=== PATIENT | female | born 1995 | race African-American/Black ===

== ENCOUNTER → 2018-06-07 | Outpatient (REF) | payer OTHER | LOC: M LAB REF 13:10 | PROVIDERS: ATTEND Advanced Practice Midwife | DX: Z34.83 Encounter for supervision of other normal pregnancy, third trimester (principal); Z3A.00 Weeks of gestation of pregnancy not specified ==

== ENCOUNTER 2018-06-24 12:02 | Outpatient (CLI) | payer OTHER ==
[~2018-06-24] VITALS: Ht 152.4 cm; Wt 63.5 kg
[2018-06-24 12:27] VITALS: BP 108/62
[2018-06-24] MEDS ORDERED: PRENTAB9 PO (12:41)
== END 2018-06-24 14:00 | disposition home or self-care (01) ==
LOC: M LDO 12:02
PROVIDERS: ATTEND Specialist
DX: O26.853 Spotting complicating pregnancy, third trimester (principal); O26.893 Other specified pregnancy related conditions, third trimester; M54.5 Low back pain; O47.1 False labor at or after 37 completed weeks of gestation; Z3A.38 38 weeks gestation of pregnancy
CPT/HCPCS: 59025; G0378; G0463

== ENCOUNTER 2018-07-01 10:10 | Inpatient (IN) | payer OTHER ==
[~2018-07-01] VITALS: Ht 152.4 cm; Wt 64.5 kg
[2018-07-01] VITALS (39 sets, daily range): BP systolic 86–129; BP diastolic 52–75
[~2018-07-01 10:10] MED LIST: PRENTAB9 PO
[2018-07-01 11:52] LABS: HEMATOCRIT 35.9 % (36.0-47.0); HEMOGLOBIN 11.7 g/dl (12.0-15.5); MEAN CORPUSCULAR HEMOGLOBIN 27.3 pg (27.0-33.0); MEAN CORPUSCULAR HGB CONC 32.6 g/dl (32.0-36.5); MEAN CORPUSCULAR VOLUME 83.7 fl (80.0-96.0); PLATELET COUNT, AUTOMATED 189 10^3/uL (150-450); RED BLOOD COUNT 4.29 10^6/uL (4.00-5.40); WHITE BLOOD COUNT 10.2 10^3/uL (4.0-10.0)
[2018-07-01] MEDS ORDERED: FENTANYL 2MCG/ML ROPIVACAINE 0.2% IN 0.9% NACL 100ML IVBAG As Ordered ONE (12:31)
[2018-07-01] MEDS ORDERED: LR 1,000 ML IV ONE (12:45)
[2018-07-01] MEDS: LR 1,000 ML IV SCH ×2 (13:22→18:00)
[2018-07-01] MEDS ORDERED: ePHEDrine SULFATE 25 MG/5 ML(5MG/ML) SYRINGE As Ordered ONE (13:49)
[2018-07-01] MEDS ORDERED: REFRIGERATOR IV KEYS XX PRN (14:00)
[2018-07-01] MEDS ORDERED: FENTANYL/ROPIVACAINE/NACL BAG 100 ML EPIDURAL SCH (14:00)
[2018-07-01] MEDS ORDERED: ePHEDrine SULFATE 25 MG/5 ML(5MG/ML) SYRINGE IV PRN (14:00)
[2018-07-01] MEDS ORDERED: NALOXONE INJ 0.4 MG/1 ML VIAL (J2310) IV PRN (14:00)
[2018-07-01] MEDS ORDERED: diphenhydrAMINE INJ 50MG/ML VIAL (J1200) IV PRN (14:00)
[2018-07-01] MEDS ORDERED: ONDANSETRON 4MG/2ML VIAL (J2405) IV PRN (14:00)
[2018-07-01] MEDS ORDERED: EPIDURAL/PCA KEYS XX PRN (14:00)
[2018-07-01] MEDS ORDERED: LACTATED RINGER'S 1000 ML IV PRN (14:00)
[2018-07-01] MEDS ORDERED: EPIDURAL COMMENT XX SCH (14:00)
[2018-07-01] MEDS ORDERED: OXYTOCIN 30 UNITS IN 0.9% NaCl 500ML IV BAG (J2590) As Ordered ONE (18:30)
--- NOTE | 2018-07-01 19:08 | HPE ---
DATE OF ADMISSION: 07/01/2018 REASON FOR ADMISSION: Labor. HISTORY OF PRESENT ILLNESS: Mrs. Edwards is a 23-year-old, 3, para 2 who presents at 39 weeks 4 days estimated gestational age by her last menstrual period confirmed by first trimester ultrasound here with complaints of contractions. She reports contractions throughout the day that have increased in intensity and frequency. She reports active movement. She denies any vaginal bleeding or leakage of fluid. Her course was remarkable for transfer of care with records. She initiated her care in the first trimester that has been appropriate throughout. She had a positive quad screen and genetic testing positive for trisomy 21. She declined amniocentesis, otherwise unremarkable course. PAST MEDICAL HISTORY: None. PAST SURGICAL HISTORY: She has had orthopedic surgery. PAST OBSTETRICAL HISTORY: She is 3, para 2. She has had two term vaginal births. She is proven 9 pounds 1 ounce. MEDICATIONS: Includes: - vitamins ALLERGIES: She has no known drug allergies. SOCIAL HISTORY: Denies any alcohol, tobacco or drug use during . PHYSICAL EXAMINATION: Her vital signs are stable. She is afebrile. General appearance is well appearing, no acute distress. She has a category one heart rate tracing with contractions on tacometer. Her lungs are clear to auscultation bilaterally. Cardiovascular: Heart regular rate and rhythm. Her abdomen is gravid, nontender. Estimated weight (EFW) 3500 grams. Cervical exam: She was 4 cm dilated, 75% effaced, -2 station. LABORATORY DATA: Her blood type is AB positive, antibody screen is negative. Rubella is immune. RPR is nonreactive. Hepatitis surface antigen negative, HIV is negative. Chlamydia, gonorrhea screens are negative. She had a normal 1- hour Glucola. She is GBS negative. ASSESSMENT: 1. This patient is a 23-year-old 3, para 2 at 39 weeks 4 days estimated gestational age here in active labor. 2. Reassuring status. PLAN: 1. Admit to labor and delivery, CBC, RPR, type and screen. 2. The patient is a good candidate for an epidural. 3. I discussed medications as well as procedures performed in labor and delivery. She has also been verbally consented for emergency surgery, blood products, anesthesia, and desires to proceed with admission/ MTDD
[2018-07-01] MEDS ORDERED: OXYTOCIN DRIP 30 UNITS in APPROPRIATE DILUENT 1 EA IV SCH (22:31)
[2018-07-01] MEDS: IBUPROFEN 800 MG TAB PO PRN (22:43)
[2018-07-01] MEDS ORDERED: METHYLERGONOVINE MALEATE 0.2 MG TAB PO PRN (22:45)
[2018-07-01] MEDS ORDERED: ANUSOL HC CREAM 30GM TOP PRN (22:45)
[2018-07-01] MEDS ORDERED: DIBUCAINE 1% OINTMENT 30GM TOP PRN (22:45)
[2018-07-01] MEDS ORDERED: RHOGAM 300 MCG (1500 IU) INJ (J2790) IM SCH (22:45)
[2018-07-01] MEDS ORDERED: DOCUSATE SODIUM 100 MG CAP PO PRN (22:45)
[2018-07-01] MEDS ORDERED: MEASLES,MUMPS,RUBELLA VACCINE INJ (MMR-II) (90707) SC SCH (22:45)
[2018-07-01] MEDS ORDERED: MOM 30ML SUSPENSION UDC PO PRN (22:45)
[2018-07-02] MEDS: ACETAMINOPHEN 500 MG TAB PO PRN ×2 (05:55→13:03)
[2018-07-02 06:00] VITALS: BP 119/76
--- NOTE | 2018-07-02 06:40 | DN ---
DATE OF DELIVERY: 07/01/2018 TIME OF : 1858 hours. GENDER: Male. SCORES: 9 and 9. WEIGHT: 3780 grams or 8 pounds 5 ounces. ANESTHESIA: Epidural. LACERATIONS: None. ESTIMATED BLOOD LOSS: 300 mL. COUNTS: Five laparotomy sponges accounted for prior to and after delivery. DELIVERY NOTE: On July 01, 2018 at 1858 hours, Mrs. Edwards, a 23-year-old 3, now para 3 had a spontaneous vaginal delivery of liveborn male infant, scores of 9 and 9. Weight was 3780 grams or 8 pounds 5 ounces. Head was delivered JORGE A over an intact perineum followed by delivery of right anterior shoulder, left posterior shoulder and corpus. Infant was handed to the mom with a good cry. Cord was clamped times two and was cut. Placenta was then drained and delivered grossly intact. A premixed bag of 500 mL of normal saline with 30 units of Pitocin was bolused along with uterine massage. The uterus was firm. On inspection, the cervix, vagina and perineum was grossly intact and hemostatic. Mom and baby recovered, in stable condition. Mom has decided to name her son Josse. Edited 07/02/2018 @ 0641 [facility]
[2018-07-02] MEDS: PRENATAL VITAMINS CHEWABLE TABLET PO SCH (08:47)
[2018-07-02] MEDS: IBUPROFEN 800 MG TAB PO PRN ×2 (11:12→19:26)
[2018-07-02 18:00] VITALS: BP 100/57
[2018-07-03] MEDS: ACETAMINOPHEN 500 MG TAB PO PRN (00:12)
[2018-07-03 06:03] VITALS: BP 94/55
[2018-07-03] MEDS: PRENATAL VITAMINS CHEWABLE TABLET PO SCH (08:17)
[2018-07-03] MEDS ORDERED: IBUP-1114 PO (08:38)
[2018-07-03] MEDS ORDERED: MAPA500T2 PO (08:38)
[2018-07-03] MEDS ORDERED: ADACEL/BOOSTRIX VACCINE (DIPHTH/PERTUSS/ACELL/TETANUS)0.5ML SYR (90715) IM ONE (09:00)
[2018-07-03] MEDS ORDERED: INFLUENZA QUADRIVALENT PF VACCINE 0.5ML SYRINGE (90686) IM ONE (09:00)
== END 2018-07-03 09:40 | disposition home or self-care (01) | DRG 807 ==
LOC: M LDO 10:10 → M LDI 11:15 → M OBS 21:52
PROVIDERS: ADMIT Obstetrics & Gynecology; ATTEND Obstetrics & Gynecology
PROC: 10E0XZZ Delivery of Products of Conception, External Approach (ICD-10-PCS; principal; 2018-07-01)
DX: O80 Encounter for full-term uncomplicated delivery (principal); Z37.0 Single live birth; Z3A.39 39 weeks gestation of pregnancy

== ENCOUNTER 2018-07-11 20:08 | Emergency (ER) | payer OTHER ==
[~2018-07-11] VITALS: Ht 152.4 cm; Wt 52.3 kg
[~2018-07-11 20:08] MED LIST changes: +IBUP-1114 PO; +MAPA500T2 PO
[2018-07-11] MEDS ORDERED: NS 1,000 ML IV ONE (22:00)
[2018-07-11] MEDS ORDERED: KETOROLAC 30 MG/ML VIAL (J1885) IV ONE (22:30)
[2018-07-11] MEDS ORDERED: METOCLOPRAMIDE INJ 10MG/2ML VIAL (J2765) IV ONE (22:30)
[2018-07-11] MEDS ORDERED: diphenhydrAMINE INJ 50MG/ML VIAL (J1200) IV ONE (22:30)
[2018-07-11 22:52] LABS: BASO % 0.4 % (0.0-1.0); EOS % 0.4 % (0.0-3.0); HEMOGLOBIN 12.4 g/dl (12.0-15.5); LYMPH % 26.7 % (24.0-44.0); MEAN CORPUSCULAR HGB CONC 32.6 g/dl (32.0-36.5); MEAN CORPUSCULAR VOLUME 82.8 fl (80.0-96.0); MONO # 0.4 10^3/uL (0.0-0.8); MONO % 5.6 % (0.0-5.0); NEUTROPHILS % 66.8 % (36.0-66.0); PLATELET COUNT, AUTOMATED 317 10^3/uL (150-450); RED BLOOD COUNT 4.59 10^6/uL (4.00-5.40); WHITE BLOOD COUNT 7.5 10^3/uL (4.0-10.0)
[2018-07-11 23:04] LABS: ALBUMIN 3.5 GM/DL (3.2-5.2); ALT/SGPT 19 U/L (12-78); BILIRUBIN,DIRECT 0.1 MG/DL (0.0-0.2); BILIRUBIN,TOTAL 0.4 MG/DL (0.2-1.0); BLOOD UREA NITROGEN 6 MG/DL (7-18); CALCIUM LEVEL 9.7 MG/DL (8.5-10.1); CARBON DIOXIDE LEVEL 29 MEQ/L (21-32); CHLORIDE LEVEL 106 MEQ/L (98-107); CREATININE FOR GFR 0.75 MG/DL (0.55-1.30); GLOMERULAR FILTRATION RATE > 60.0 (>60); GLUCOSE, FASTING 100 MG/DL (70-100); POTASSIUM SERUM 3.4 MEQ/L (3.5-5.1); SODIUM LEVEL 147 MEQ/L (136-145); TOTAL PROTEIN 7.6 GM/DL (6.4-8.2)
[2018-07-11] MEDS ORDERED: dexameTHASONE 20 MG/5 ML VIAL (J1100) IV ONE (23:30)
--- NOTE | 2018-07-11 23:35 | REPVR ---
EXAM: CT Head Without Contrast EXAM DATE/TIME: 07/11/2018 10:42 PM CLINICAL HISTORY: 23 years old, female; Pain; Headache; Additional info: Severe MENG, diff than other migraines TECHNIQUE: Axial computed tomography images of the head/brain without contrast. All CT scans at this facility use at least one of these dose optimization techniques: automated exposure control; mA and/or kV adjustment per patient size (includes targeted exams where dose is matched to clinical indication); or iterative reconstruction. COMPARISON: No relevant prior studies available. FINDINGS: Limitations: Examination is limited by motion artifact. Brain: No hemorrhage. No significant white matter disease. No edema. Cortical clemens-white matter differentiation is preserved. Ventricles: Normal. No ventriculomegaly. Bones/joints: Unremarkable. No acute fracture. Sinuses: Visualized sinuses are unremarkable. No acute sinusitis. Mastoid air cells: Visualized mastoid air cells are unremarkable. No mastoid effusion. Soft tissues: Unremarkable. IMPRESSION: Limited evaluation. No acute findings. Electronically signed by: Meño Golden On 07/11/2018 23:35:11 PM
[2018-07-11] MEDS ORDERED: REGL10TA6 PO (23:56)
[2018-07-12 00:35] VITALS: BP 149/85
== END 2018-07-12 00:36 | disposition home or self-care (01) ==
LOC: M ED 20:08
DX: G43.909 Migraine, unspecified, not intractable, without status migrainosus (principal); R51 Headache
CPT/HCPCS: 70450; 80048; 80076; 83735; 85025; 96374; 96375; 99284; J1100; J1200; J1885; J2765